=== PATIENT | female | born 1990 | race African-American/Black ===

== ENCOUNTER 2020-06-26 08:44 | Emergency (ER) | payer BC, MEDICAID ==
[~2020-06-26] VITALS: Ht 167.6 cm; Wt 84.4 kg
[2020-06-26 09:10] VITALS: BP 134/85
[2020-06-26 10:39] LABS: Basophils # (auto) 0 10 ^3/uL (0-0.2); Basophils % (auto) 0.3 % (0.0-2.0); Eosinophils # (auto) 0.1 10 ^3/uL (0-0.8); Mean Corpuscular Hemoglobin 24.5 pg (28.0-32.0)
[2020-06-26 10:41] LABS: Eosinophils % (auto) 0.6 % (0.0-7.0); Hematocrit 35.3 % (36.0-46.0); Hemoglobin 11.3 g/dL (12.2-16.2); Lymphocytes # (auto) 1.3 10 ^3/uL (0.4-5.4); Lymphocytes % (auto) 10.3 % (10.0-50.0); Mean Corpuscular Volume 76.6 fL (80.0-100.0); Monocytes # (auto) 0.7 10 ^3/uL (0-1.3); Monocytes % (auto) 5.7 % (0.0-12.0); Neutrophils # (auto) 10.3 10 ^3/uL (1.6-8.6); Neutrophils % (auto) 83.1 % (37.0-80.0); Platelet Count (auto) 357 10^3/uL (140-450); Red Blood Cells 4.61 10^6/uL (4.0-5.20); Red Cell Distribution Width 18.3 % (11.8-14.3); White Blood Cell 12.4 10^3/uL (4.4-10.8)
[2020-06-26 10:58] LABS: Potassium 3.9 mmol/L (3.5-5.1)
[2020-06-26 11:06] LABS: Albumin 2.8 g/dL (3.4-5.0); BUN/Creatinine Ratio 22.2; Bilirubin, Total 0.3 mg/dL (0.2-1.0); Calcium 8.9 mg/dL (8.5-10.1); Total Protein 7.7 g/dL (6.4-8.2)
== END 2020-06-26 11:34 | disposition home or self-care (01) ==
LOC: ER 08:44
DX: R19.09 Other intra-abdominal and pelvic swelling, mass and lump (principal); K59.00 Constipation, unspecified; N76.0 Acute vaginitis; N39.0 Urinary tract infection, site not specified
CPT/HCPCS: 36415; 74018; 74176; 80053; 81002; 85025